=== PATIENT | male | born 1945 | race Caucasian/White ===

== ENCOUNTER 2025-04-28 15:43 | Inpatient (IN) ==
[2025-04-28] MEDS ORDERED: IOPAMIDOL 100 ML BOTTLE IV ONE (15:44)
[2025-04-28] MEDS: 0.9 % SODIUM CHLORIDE 1,000 ML IV ONE (16:38)
[2025-04-28 16:48] LABS: Basophils # (Auto) 0.05 K/mcL (0.00-0.30); Basophils % (Auto) 0.9 % (0.0-2.0); Eosinophils # (Auto) 0.33 K/mcL (0.00-0.70); Eosinophils % (Auto) 6.1 % (0.0-7.0); Hematocrit 35.0 % (40.1-51.0); Hemoglobin 11.1 g/dL (13.7-17.5); Lymphocytes # (Auto) 2.23 K/mcL (1.50-4.80); Lymphocytes % (Auto) 41.4 % (15.5-49.0); Mean Corpuscular HGB Conc 31.7 g/dL (31.0-36.0); Monocytes # (Auto) 0.31 K/mcL (0.10-0.90); Monocytes % (Auto) 5.8 % (1.0-12.0); Neutrophils % (Auto) 45.6 % (38.0-78.0); Platelet Count 140 K/mcL (140-440); RBC 3.99 M/mcL (4.63-6.08); WBC 5.4 K/mcL (4.5-11.0)
[2025-04-28 17:07] LABS: Anion Gap 12.0 (8.0-16.0); Blood Urea Nitrogen 27 mg/dL (8-23); Calcium 9.2 mg/dL (8.6-10.4); Carbon Dioxide 27 mmol/L (22-30); Chloride 103 mmol/L (96-108); Glucose 94 mg/dL (70-105); Potassium 4.0 mmol/L (3.3-5.1); Sodium 142 mmol/L (133-145)
[2025-04-28] MEDS: ASPIRIN 81 MG TAB.CHEW CHEWED ONE (18:11)
[2025-04-28] MEDS: CLOPIDOGREL 300 MG TABLET PO ONE (18:11)
[2025-04-28 18:54] LABS: Bacteria,Urine 0 /hpf (0); Bilirubin,Urine NEGATIVE (Negative); Color,Urine LT. YELLOW; Glucose,Urine (UA) NEGATIVE (Negative); Ketones,Urine NEGATIVE (Negative); Leukocyte Esterase,Urine SMALL /uL (Negative); PH,Urine 6.0 (5.0-9.0); Protein,Urine NEGATIVE (Negative); Specific Gravity,Urine <= 1.005 (1.000-1.035); Urobilinogen,Urine 0.2 mg/dL
[2025-04-28] MEDS ORDERED: MECLIZINE 25 MG TABLET PO PRN (19:36)
[2025-04-28] MEDS ORDERED: ONDANSETRON 4 MG/2 ML VIAL IV PRN (20:48)
[2025-04-28] MEDS ORDERED: ACETAMINOPHEN 325 MG TABLET PO PRN (20:48)
[2025-04-28] MEDS ORDERED: hydrALAZINE 20 MG/ML VIAL IV PRN (20:48)
[2025-04-28] MEDS ORDERED: IPRATROPIUM/ALBUTEROL 3 ML AMPUL.NEB NEB PRN (20:48)
[2025-04-28] MEDS ORDERED: DEXTROSE 50% 50 ML VIAL IV PRN (20:48)
[2025-04-28] MEDS ORDERED: DEXTROSE 31 GM ORAL.SUSP PO PRN (20:48)
[2025-04-28] MEDS ORDERED: ASPIRIN 81 MG TAB.CHEW CHEWED SCH (21:00)
[2025-04-28] MEDS: DOCUSATE SODIUM 100 MG CAPSULE PO SCH (21:16)
[2025-04-28] MEDS: SENNOSIDES 1 TABLET PO SCH (21:16)
[2025-04-28] MEDS: INSULIN LISPRO 1 UNIT/0.01 ML UNIT SQ SCH (21:16)
[2025-04-28] MEDS: 0.9 % SODIUM CHLORIDE 10 ML SYRINGE IV SCH (21:17)
[2025-04-29 06:44] LABS: Basophils # (Auto) 0.04 K/mcL (0.00-0.30); Basophils % (Auto) 0.9 % (0.0-2.0); Eosinophils # (Auto) 0.32 K/mcL (0.00-0.70); Eosinophils % (Auto) 7.6 % (0.0-7.0); Hematocrit 33.7 % (40.1-51.0); Hemoglobin 10.9 g/dL (13.7-17.5); Lymphocytes # (Auto) 1.76 K/mcL (1.50-4.80); Lymphocytes % (Auto) 41.7 % (15.5-49.0); Mean Corpuscular HGB Conc 32.3 g/dL (31.0-36.0); Monocytes # (Auto) 0.33 K/mcL (0.10-0.90); Monocytes % (Auto) 7.8 % (1.0-12.0); Neutrophils % (Auto) 42.0 % (38.0-78.0); Platelet Count 132 K/mcL (140-440); RBC 3.85 M/mcL (4.63-6.08); WBC 4.2 K/mcL (4.5-11.0)
[2025-04-29 06:47] LABS: ALT/SGPT 13 U/L (<40); AST/SGOT 19 U/L (<40); Albumin 3.6 gm/dL (3.2-5.2); Albumin/Globulin Ratio 1.4 (1.0-2.3); Alkaline Phosphatase 126 U/L (39-117); Anion Gap 10.0 (8.0-16.0); Bilirubin,Total < 0.2 mg/dL (0.1-1.0); Blood Urea Nitrogen 25 mg/dL (8-23); Calcium 8.6 mg/dL (8.6-10.4); Carbon Dioxide 26 mmol/L (22-30); Chloride 106 mmol/L (96-108); Globulin 2.5 gm/dL (2.2-3.7); Glucose 134 mg/dL (70-105); HDL Cholesterol 34 mg/dL (>40); LDL Cholesterol,Calculated 43 mg/dL (<100); Potassium 4.4 mmol/L (3.3-5.1); Sodium 142 mmol/L (133-145); Triglycerides 152 mg/dL (<150)
[2025-04-29 08:04] LABS: Estimated Average Glucose(eAG) 148 mg/dL; Hemoglobin A1C 6.8 % Hgb (4.0-6.0)
[2025-04-29 11:24] VITALS: O2SAT 97
[2025-04-29] MEDS: CLOPIDOGREL 75 MG TABLET PO SCH (11:42)
[2025-04-29] MEDS ORDERED: ALBUTEROL SULFATE 60 PUFF INHALER INH PRN ×2 (15:12→15:26)
[2025-04-29] MEDS ORDERED: NITROGLYCERIN 0.4 MG TAB.SUBL SL PRN (15:24)
[2025-04-29 15:45] VITALS: TEMP 97.3
[2025-04-29] MEDS ORDERED: TERAZOSIN 1 MG CAPSULE PO SCH (21:00)
[2025-04-29] MEDS ORDERED: ATORVASTATIN 40 MG TABLET PO SCH (21:00)
[2025-04-29] MEDS ORDERED: PREGABALIN 100 MG CAPSULE PO SCH (21:00)
[2025-04-29] MEDS ORDERED: FERROUS SULFATE 325 MG TABLET PO SCH (21:00)
[2025-04-30] MEDS ORDERED: FUROSEMIDE 40 MG TABLET PO SCH (09:00)
[2025-04-30] MEDS ORDERED: VITAMIN D3 25 MCG TABLET PO SCH (09:00)
[2025-04-30] MEDS ORDERED: TAMSULOSIN 0.4 MG CAPSULE PO SCH (09:00)
[2025-04-30] MEDS ORDERED: ASPIRIN 81 MG TAB.CHEW PO SCH (09:00)
== END 2025-04-29 17:02 | disposition home health service (06) | DRG 69 ==
LOC: ED 15:43 → MEDSUR 20:46
PROVIDERS: ADMIT Internal Medicine; ATTEND Internal Medicine